=== PATIENT | female | born 1990 | race Caucasian/White ===

== ENCOUNTER → 2017-05-14 | Outpatient (CLI) | payer OTHER ==
--- NOTE | 2017-05-14 10:10 | KCIC ---
OB < 14 WKS History: Small for dates Comparison: None. Findings: Multiple transabdominal sonographic images of the pelvis are submitted. There is a single intrauterine gestational sac. Gestational sac morphology is within normal limits. There is identifiable pole with identifiable cardiac activity 168 bpm. There is identifiable yolk sac. anatomy and placenta are not well visualized at this age of the . [place] [employer]-rump length measurement of 2.27 cm corresponds 9 weeks 0 days. Adjusted ultrasound age is 9 weeks 0 days with estimated delivery date of 12/17/2017. LMP age is 10 weeks 0 days with estimated delivery date of 12/10/2017. Uterus measured 16.2 x 6.3 x 8.7 cm. No free fluid is demonstrated. Right ovary measured 4.7 x 2.3 x 3.5 cm. There is a focus of different echogenicity of the right ovary on the order of 2.2 x 1.9 x 2 cm. Left ovary measured 3.1 x 1.7 x 1 3.1 cm. There is normal low resistance vascularity of both ovaries. Impression: 1. There is a single viable intrauterine , adjusted ultrasound age 9 weeks 0 days with estimated delivery date of 12/17/2017. 2. Focus of different echogenicity of the right ovary is likely due to corpus luteal cyst. Electronically signed by: Hugh Liz MD (05/14/2017 10:07 AM) [id number]
== END | disposition home or self-care (01) ==
LOC: KCIC US 08:49
PROVIDERS: ATTEND Family Medicine
DX: Z34.91 Encounter for supervision of normal pregnancy, unspecified, first trimester (principal); Z3A.09 9 weeks gestation of pregnancy
CPT/HCPCS: 76801

== ENCOUNTER → 2017-07-30 | Outpatient (CLI) | payer OTHER ==
--- NOTE | 2017-07-30 16:04 | KCIC ---
OB ULTRASOUND, > 14 WEEKS Clinical Indication: Large for dates, anatomy scan. Comparison: OB ultrasound, May 14, 2017. Technique: Multiple grayscale images, color Doppler, and M-mode images of the uterus are obtained. Findings: There is a single intrauterine gestation in breech presentation. The placenta is posterior in location without evidence of placenta previa. The amount of amniotic fluid appears appropriate. Amniotic fluid index is 13 cm. Cervical length is 4.7 cm. Biometrical data: BPD = 4.5 cm for 19 weeks 5 days. HC = 17.8 cm for 20 weeks 2 days. AC = 14.6 cm for 20 weeks 0 days. FL = 3.3 cm for 20 weeks 2 days. HC/AC ratio = 1.21. Overall, the estimated sonographic gestational age is 20 weeks and 1 day for an estimated date of delivery of December 16, 2017. The estimated date of delivery provided by the last ultrasound is 12/17/2017. Estimated weight is 331 +/- 49 grams. A 4 chamber heart is identified with positive cardiac activity. The estimated heart rate is 143 beats per minute. Bilateral upper and lower extremities are identified. There is a three-vessel cord with cord insertion visualized. stomach and urinary bladder are identified. Both kidneys are seen. The visualized spine is unremarkable. Limited images of the brain. No obvious anatomic abnormalities are identified. IMPRESSION: 1. Single live intrauterine gestation with estimated sonographic gestational age of 20 weeks and 1 day. 2. No obvious anatomic abnormality. Electronically signed by: Armani Knox MD (07/30/2017 4:00 PM) [id number]
== END | disposition home or self-care (01) ==
LOC: KCIC US 10:39
PROVIDERS: ATTEND Family Medicine
DX: O36.62X0 Maternal care for excessive fetal growth, second trimester, not applicable or unspecified (principal); Z3A.20 20 weeks gestation of pregnancy
CPT/HCPCS: 76805

== ENCOUNTER 2017-12-06 11:33 | Observation (INO) | payer OTHER ==
[2017-12-06] MEDS ORDERED: IV RINGERS,LACTATED 1000ML 1,000 ML IV (11:42)
[2017-12-06 12:09] LABS: BILIRUBIN,URINE NEGATIVE (NEG); CLARITY,URINE CLEAR; COLOR,URINE YELLOW; GLUCOSE,URINE NEGATIVE (NEG); NITRITE,URINE NEGATIVE (NEG); PROTEIN,URINE NEGATIVE (NEG-TRACE); UROBILINOGEN,URINE 0.2 mg/dL (0.2 mg/dL)
[2017-12-06 12:32] LABS: ADD MAN DIFF? NO
[2017-12-06 12:34] LABS: RBC,URINE OCC /HPF (0-2)
[2017-12-06 12:35] LABS: BACTERIA,URINE FEW /HPF (0-FEW); BASO % 0 % (0-3); EOS # 0.1 x10^3/uL (0.0-0.7); EOS % 1 % (0-3); HEMATOCRIT 32.3 % (36.0-47.0); HEMOGLOBIN 11.1 g/dL (12.0-15.5); LYMPH # 1.7 x10^3/uL (1.0-4.8); LYMPH % 18 % (24-48); MEAN CORPUSCULAR HEMOGLOBIN 30 pg (25-35); MEAN CORPUSCULAR HGB CONC 34 g/dL (31-37); MEAN CORPUSCULAR VOLUME 88 fL (79-100); MONO # 0.6 x10^3/uL (0.0-1.1); MONO % 6 % (0-9); NEUT % 75 % (31-73); PLATELET COUNT 166 x10^3/uL (140-400); RED BLOOD COUNT 3.66 x10^6/uL (3.50-5.40); RED CELL DISTRIBUTION WIDTH 17.5 % (11.5-14.5); SQUAMOUS EPITHELIAL CELL,UR MOD /LPF; WHITE BLOOD COUNT 9.4 x10^3/uL (4.0-11.0)
[2017-12-06 13:05] LABS: URIC ACID 4.3 mg/dL (2.6-6.0)
[2017-12-06 13:06] LABS: ALBUMIN 2.7 g/dL (3.4-5.0); ALBUMIN/GLOBULIN RATIO 0.7 (1.0-1.7); ALK PHOS 123 U/L (46-116); ANION GAP 8 (6-14); AST (SGOT) 16 U/L (15-37); BLOOD UREA NITROGEN 9 mg/dL (7-20); BUN/CREATININE RATIO 13 (6-20); CARBON DIOXIDE 26 mmol/L (21-32); CHLORIDE 105 mmol/L (98-107); CREATININE 0.7 mg/dL (0.6-1.0); GFR 100.4; GLUCOSE 86 mg/dL (70-99); POTASSIUM 4.3 mmol/L (3.5-5.1); SODIUM 139 mmol/L (136-145); TOTAL BILIRUBIN 0.4 mg/dL (0.2-1.0); TOTAL PROTEIN 6.6 g/dL (6.4-8.2)
[2017-12-06 13:07] LABS: ALT (SGPT) 13 U/L (14-59)
[2017-12-07 02:12] LABS: HEMOGLOBIN A1C 5.3 % (4.8-5.6)
[2017-12-07 06:17] LABS: RPR Non Reactive (Non Reactive)
== END 2017-12-06 15:10 | disposition home or self-care (01) ==
LOC: 3 SO LND 11:33
DX: O13.3 Gestational [pregnancy-induced] hypertension without significant proteinuria, third trimester (principal); Z3A.38 38 weeks gestation of pregnancy
CPT/HCPCS: 36415; 76815; 76819; 80053; 81001; 83036; 84550; 85025; 86593; 86850; 86900; 86901; 87086; G0378; G0379

== ENCOUNTER 2017-12-13 18:40 | Inpatient (IN) | payer OTHER ==
[2017-12-13] MEDS ORDERED: TERBUTALINE 1 MG/ML VIAL. SQ (19:00)
[2017-12-13] MEDS ORDERED: LIDOCAINE 1% PF 30 ML VIAL. INJ (19:00)
[2017-12-13] MEDS ORDERED: BUTORPHANOL 2 MG/ML VIAL. IV (19:00)
[2017-12-13] MEDS ORDERED: ZOLPIDEM 5 MG TABLET. PO (19:00)
[2017-12-13] MEDS ORDERED: OXYTOCIN 30 UNIT/500 ML PREMIX 500 ML IV (19:00)
[2017-12-13] MEDS ORDERED: 0.9 % SODIUM CHLORIDE 10 ML DISP.SYRIN. IV (19:00)
[2017-12-13] MEDS ORDERED: ONDANSETRON PF 4 MG/2 ML VIAL. IV (19:00)
[2017-12-13] MEDS: DINOPROSTONE 10 MG SUPP.VAG VG (20:02)
[2017-12-13] MEDS: IV RINGERS,LACTATED 1000ML 1,000 ML IV (20:02)
[2017-12-13 20:21] LABS: ADD MAN DIFF? NO
[2017-12-13 20:26] LABS: BASO % 0 % (0-3); EOS % 0 % (0-3); HEMATOCRIT 31.3 % (36.0-47.0); HEMOGLOBIN 10.6 g/dL (12.0-15.5); LYMPH # 1.7 x10^3/uL (1.0-4.8); LYMPH % 16 % (24-48); MEAN CORPUSCULAR HEMOGLOBIN 30 pg (25-35); MEAN CORPUSCULAR HGB CONC 34 g/dL (31-37); MEAN CORPUSCULAR VOLUME 88 fL (79-100); MONO # 0.8 x10^3/uL (0.0-1.1); MONO % 8 % (0-9); NEUT % 76 % (31-73); PLATELET COUNT 187 x10^3/uL (140-400); RED BLOOD COUNT 3.57 x10^6/uL (3.50-5.40); RED CELL DISTRIBUTION WIDTH 16.5 % (11.5-14.5); WHITE BLOOD COUNT 10.6 x10^3/uL (4.0-11.0)
[2017-12-14] MEDS: fentaNYL PF VIAL 100 MCG/2 ML VIAL IV (07:46)
[2017-12-14] MEDS: IV RINGERS,LACTATED 1000ML 1,000 ML IV (07:48)
[2017-12-14] MEDS ORDERED: L&D EPIDURAL SYRINGE 50 ML EP ×2 (07:51→09:46)
[2017-12-14] MEDS ORDERED: L&D EPIDURAL 50 ML SYRINGE. EP (08:00)
[2017-12-14] MEDS: OXYTOCIN 30 UNIT/500 ML PREMIX 500 ML IV (08:42)
[2017-12-14] MEDS ORDERED: IV RINGERS,LACTATED 1000ML 1,000 ML IV (09:50)
[2017-12-14] MEDS ORDERED: BUPIVACAINE MPF 0.25% 10 ML VIAL. EPI (10:00)
[2017-12-14] MEDS ORDERED: ROPIVacaine 0.2% IN 0.9%NACL PF 40 MG/20 ML DISP.SYRIN. EPI (10:00)
[2017-12-14] MEDS ORDERED: fentaNYL PF VIAL 100 MCG/2 ML VIAL EPI (10:00)
[2017-12-14] MEDS ORDERED: NALOXONE 0.4 MG/ML VIAL. IV (10:00)
[2017-12-14] MEDS: IBUPROFEN 800 MG TABLET. PO ×2 (13:43→20:03)
[2017-12-14] MEDS: L&D EPIDURAL SYRINGE 50 ML EP ×2 (17:00→17:02)
[2017-12-14] MEDS: ACETAMINOPHEN 325 MG TABLET. PO (21:23)
[2017-12-15] MEDS: IBUPROFEN 800 MG TABLET. PO ×3 (06:09→20:50)
[2017-12-15] MEDS: MAG HYDROX/ALUMINUM HYD/SIMETH 30 ML ORAL.SUSP PO (06:13)
[2017-12-15 06:16] LABS: RPR Non Reactive (Non Reactive)
[2017-12-15] MEDS: ACETAMINOPHEN 325 MG TABLET. PO (10:03)
[2017-12-15] MEDS: BISACODYL 10 MG SUPP.RECT. PR (10:04)
[2017-12-15] MEDS ORDERED: HYDROcodone/APAP 5/325MG 1 TAB TABLET PO ×2 (15:00)
[2017-12-15 16:02] LABS: HEMATOCRIT 27.8 % (36.0-47.0); HEMOGLOBIN 9.3 g/dL (12.0-15.5); MEAN CORPUSCULAR HEMOGLOBIN 29 pg (25-35); MEAN CORPUSCULAR HGB CONC 33 g/dL (31-37); MEAN CORPUSCULAR VOLUME 88 fL (79-100); PLATELET COUNT 180 x10^3/uL (140-400); RED BLOOD COUNT 3.16 x10^6/uL (3.50-5.40); RED CELL DISTRIBUTION WIDTH 17.1 % (11.5-14.5); WHITE BLOOD COUNT 10.3 x10^3/uL (4.0-11.0)
[2017-12-16] MEDS: IBUPROFEN 800 MG TABLET. PO (10:23)
== END 2017-12-16 15:50 | disposition home or self-care (01) | DRG 775 ==
LOC: 3 SO LND 18:40 → 3 NORTH 12-14 14:05
PROC: 10E0XZZ Delivery of Products of Conception, External Approach (ICD-10-PCS; principal; 2017-12-14)
PROC: 0UQG0ZZ Repair Vagina, Open Approach (ICD-10-PCS; 2017-12-14)
PROC: 3E0P7VZ Introduction of Hormone into Female Reproductive, Via Natural or Artificial Opening (ICD-10-PCS; 2017-12-14)
PROC: 10907ZC Drainage of Amniotic Fluid, Therapeutic from Products of Conception, Via Natural or Artificial Opening (ICD-10-PCS; 2017-12-14)
PROC: 3E0R3BZ Introduction of Anesthetic Agent into Spinal Canal, Percutaneous Approach (ICD-10-PCS; 2017-12-14)
PROC: 00HU33Z Insertion of Infusion Device into Spinal Canal, Percutaneous Approach (ICD-10-PCS; 2017-12-14)
DX: O69.81X0 Labor and delivery complicated by cord around neck, without compression, not applicable or unspecified (principal); O24.419 Gestational diabetes mellitus in pregnancy, unspecified control; O13.4 Gestational [pregnancy-induced] hypertension without significant proteinuria, complicating childbirth; O71.4 Obstetric high vaginal laceration alone; Z37.0 Single live birth; Z3A.39 39 weeks gestation of pregnancy
CPT/HCPCS: 36415; 85025; 85027; 86593; 86850; 86900; 86901; G0378; J2590; J3010; J7120

== ENCOUNTER → 2019-02-17 | Outpatient (CLI) | payer MEDICAID, OTHER ==
[2017-12-16 14:10] VITALS: BP 129/77
[~2019-02-17] MED LIST: HYDR-2761 PO; IBUP800T19 PO
--- NOTE | 2019-02-17 15:57 | KCIC ---
EXAM: PELVIC ULTRASOUND. HISTORY: Pelvic mass on exam. COMPARISON: None. FINDINGS: Sonographic evaluation of the pelvis was performed transabdominally and transvaginally. The uterus is anteverted and measures 10.7 x 5.4 x 3.7 cm. The endometrial stripe measures 8 mm. No masses are identified. There is no significant free fluid. The right ovary measures 4.7 x 3.8 x 2.7 cm. There are multiple small peripheral right ovarian follicles. A dominant follicle measures 2.0 cm and contains thin septations. The left ovary measures 3.6 x 3.1 x 2.3 cm. There are also multiple small peripheral follicles in the left ovary. There is normal Doppler flow bilaterally. There are no suspicious lesions. IMPRESSION: 1. No correlate for a palpable mass is identified. 2. Multiple small peripheral ovarian follicles bilaterally suggest polycystic ovarian syndrome. Correlate clinically. Electronically signed by: Alex Wilson MD (02/17/2019 3:54 PM) [facility]
== END | disposition home or self-care (01) ==
LOC: KCIC US 12:11
PROVIDERS: ATTEND Family Medicine
DX: D25.9 Leiomyoma of uterus, unspecified (principal)
CPT/HCPCS: 76830; 76856

== ENCOUNTER → 2019-08-15 | Outpatient (CLI) | payer SELFPAY ==
[2017-12-16 14:10] VITALS: BP 129/77
--- NOTE | 2019-08-15 17:00 | KCIC ---
EXAM: Ossific sonogram. HISTORY: Size and dates assessment. TECHNIQUE: Sonographic imaging of a gravid uterus was performed. COMPARISON: None. FINDINGS: There is a single intrauterine gestational sac with pole and yolk sac. The crown-rump length is 1.76 cm, corresponding with a gestational age of 8 weeks and 2 days and due date of 03/24/2020. There is a normal heart rate of 178 bpm. the uterus is normal in size. The gestational sac is normal in configuration and location. The right ovary is obscured. The left ovary is unremarkable. There is no pelvic free fluid. IMPRESSION: 1. Single imaging fetus with normal heart rate and estimated gestational age of 8 weeks and 2 days. 2. Obscured maternal right ovary. The maternal left ovary is unremarkable. Electronically signed by: Elham Ford MD (08/15/2019 4:57 PM) [place] [id number]
== END | disposition home or self-care (01) ==
LOC: KCIC US 15:40
PROVIDERS: ATTEND Family Medicine
DX: Z34.81 Encounter for supervision of other normal pregnancy, first trimester (principal)
CPT/HCPCS: 76801

== ENCOUNTER 2020-03-03 09:37 | Inpatient (IN) | payer SELFPAY ==
[~2020-03-03] VITALS: Ht 149.9 cm; Wt 91.6 kg
[2020-03-03] MEDS ORDERED: LIDOCAINE 1% PF 30 ML VIAL. INJ PRN (10:30)
[2020-03-03] MEDS ORDERED: OXYTOCIN 30 UNIT/500 ML PREMIX 500 ML IV PRN ×3 (10:30→19:30)
[2020-03-03] MEDS ORDERED: IBUPROFEN 400 MG TABLET. PO PRN (10:30)
[2020-03-03] MEDS ORDERED: fentaNYL PF VIAL 100 MCG/2 ML VIAL IVP PRN (10:30)
[2020-03-03] MEDS ORDERED: IV RINGERS,LACTATED 1000ML 1,000 ML IV SCH ×2 (10:30→16:44)
[2020-03-03] MEDS ORDERED: TERBUTALINE 1 MG/ML VIAL. SQ PRN (10:30)
[2020-03-03] MEDS ORDERED: 0.9 % SODIUM CHLORIDE 10 ML DISP.SYRIN. IV PRN ×2 (10:30→19:30)
[2020-03-03 10:45] VITALS: BP 98/53
[2020-03-03] MEDS ORDERED: PENICILLIN G K 5,000,000 UNIT in IV DEXTROSE 5% 100ML 100 ML IV ONE (11:00)
[2020-03-03 11:02] LABS: BILIRUBIN,URINE NEGATIVE (NEG); CLARITY,URINE CLEAR; COLOR,URINE YELLOW; NITRITE,URINE NEGATIVE (NEG); PH,URINE 5.5 (<5.0-8.0); PROTEIN,URINE NEGATIVE (NEG-TRACE); UROBILINOGEN,URINE 0.2 mg/dL (0.2 mg/dL)
[2020-03-03 11:03] LABS: BASO % 0 % (0-3); EOS % 0 % (0-3); HEMATOCRIT 31.5 % (36.0-47.0); LYMPH # 1.3 x10^3/uL (1.0-4.8); LYMPH % 16 % (24-48); MEAN CORPUSCULAR HEMOGLOBIN 31 pg (25-35); MEAN CORPUSCULAR HGB CONC 35 g/dL (31-37); MEAN CORPUSCULAR VOLUME 89 fL (79-100); MONO # 0.5 x10^3/uL (0.0-1.1); MONO % 6 % (0-9); NEUT # 6.4 x10^3/uL (1.8-7.7); NEUT % 78 % (31-73); PLATELET COUNT 155 x10^3/uL (140-400); RED BLOOD COUNT 3.54 x10^6/uL (3.50-5.40); RED CELL DISTRIBUTION WIDTH 16.1 % (11.5-14.5); WHITE BLOOD COUNT 8.3 x10^3/uL (4.0-11.0)
[2020-03-03 11:22] LABS: SQUAMOUS EPITHELIAL CELL,UR FEW /LPF
[2020-03-03 11:23] LABS: BACTERIA,URINE 0 /HPF (0-FEW); WBC,URINE OCC /HPF (0-4)
[2020-03-03] MEDS ORDERED: PENICILLIN G K 2,500,000 UNIT in IV DEXTROSE 5% 50 ML IV SCH (15:00)
[2020-03-03] MEDS ORDERED: ROPIVacaine 0.2% PF 10 ML VIAL. ONE ×2 (16:34→17:00)
[2020-03-03] MEDS ORDERED: L&D EPIDURAL SYRINGE 50 ML ONE (16:35)
[2020-03-03] MEDS ORDERED: fentaNYL PF VIAL 100 MCG/2 ML VIAL EPID PRN (16:45)
[2020-03-03] MEDS ORDERED: ROPIVacaine 0.2% PF 10 ML VIAL. EPID PRN (16:45)
[2020-03-03] MEDS ORDERED: L&D EPIDURAL SYRINGE 50 ML EPID PRN (16:45)
[2020-03-03] MEDS ORDERED: NALOXONE 0.4 MG/ML VIAL. IV PRN (16:45)
[2020-03-03] MEDS ORDERED: BUPIVACAINE MPF 0.25% 30 ML VIAL. EPID PRN (16:45)
[2020-03-03] MEDS ORDERED: L&D EPIDURAL 50 ML SYRINGE. ONE (17:00)
--- NOTE | 2020-03-03 19:18 | PDOC1 ---
OB - History Hx of Present Care: Good Care Ultrasounds: Normal mid trimester US Obstetrical Complications: Gestational Diabetes Past Family/Social History * Past Medical, Surgical, Family and Obstetric Histories reviewed from chart. Blood Type: A+ Rubella: Immune RPR/VDRL: Negative GBS Status: Unknown HBsAG: Negative OB - Chief Complaint & HPI Date of Admission: Date of Admission: Mar 03, 2020 at 09:37 Chief Complaint/History : 3 Para: 2 EDC: Mar 24, 2020 Reason for admission: other (SROM) Admission Nurse Assessment Rev: Yes OB - Admission Exam Physical Exam Vitals: VS - Last 72 Hours, by Label Date Time Temp Pulse Resp B/P (MAP) Pulse Ox O2 Delivery O2 Flow Rate FiO2 03/03/20 10:45 98.8 88 18 98/53 (68) 98 Room Air 98.8 HEENT: Normal, Nasal Mucosa Normal, Oropharynx Normal, Moist Membranes, Fontanelles Normal Lungs: Clear, Equal Abdomen: Gravid Extremities: Normal Pulses, No tenderness or swelling Reflexes: Normal Cervical Dilatation: 1cm Effacement: 75% Station: -3 Membranes: Ruptured Amniotic Fluid: Clear Heart Rate: Normal Accelerations: Accelerations Present Decelerations: No decelerations Short Term Variability: Present [place] Variability: Moderate Contractions on Admission: None SOFIYA SQUIRES MD Mar 03, 2020 19:17
[2020-03-03] MEDS ORDERED: HYDROCORTISONE 1% TOPICAL OINTMENT 30GM TUBE. TP PRN (19:30)
[2020-03-03] MEDS ORDERED: MAG HYDROX/ALUMINUM HYD/SIMETH 30 ML ORAL.SUSP PO PRN (19:30)
[2020-03-03] MEDS ORDERED: ZOLPIDEM 5 MG TABLET. PO PRN (19:30)
[2020-03-03] MEDS ORDERED: BENZOCAINE 20% TOPICAL AEROSOL SPRAY 57GM CAN. TP PRN (19:30)
[2020-03-03] MEDS ORDERED: HYDROcodone/APAP 5/325MG 1 TAB TABLET PO PRN (19:30)
[2020-03-03] MEDS ORDERED: PHENYLEPH/MINERAL OIL/PETROLAT RECTAL OINTMENT TUBE. RC PRN (19:30)
[2020-03-03] MEDS ORDERED: ACETAMINOPHEN 325 MG TABLET. PO PRN (19:30)
[2020-03-03] MEDS ORDERED: SIMETHICONE 80 MG TAB.CHEW PO PRN (19:30)
[2020-03-03] MEDS ORDERED: MAGNESIUM HYDROXIDE 2,400 MG/30 ML ORAL.SUSP. PO PRN (19:30)
[2020-03-03] MEDS ORDERED: diphenhydrAMINE HCL 25 MG CAPSULE PO PRN (19:30)
--- NOTE | 2020-03-03 19:51 | OP ---
DATE OF SURGERY: 03/03/2020 DELIVERY NOTE CLINICAL COURSE: This patient is a female with EDC of 03/24/2020, admitted with spontaneous rupture of membranes and clear fluid noted. She had risk of gestational diabetes, which was controlled with metformin and adequate blood sugar control throughout her course. She proceeded without contractions initially and started on Pitocin, dilating to 4-5 cm obtaining epidural anesthesia with good pain control, achieving complete dilatation and delivering a viable female infant. Head was delivered and suctioned. Nuchal cord x 3 was reduced. Compound cord and body was reduced. Body was delivered. Infant had spontaneous cry. There was 30 seconds placental resuscitation. Cord was clamped and transected. Infant was handed off with no gross abnormalities noted. Perineum was intact. Placenta was delivered intact with 3-vessel cord noted. Uterus was firm with Pitocin and palpation. There was 200 mL estimated blood loss. Mother and baby to recovery in stable condition. SOFIYA SQUIRES MD DR: FRANSISCA/twila JOB#: [id number] / [id number]
[2020-03-03] MEDS: IBUPROFEN 400 MG TABLET. PO SCH (21:39)
[2020-03-03 22:41] VITALS: BP 123/85
[2020-03-03 23:30] VITALS: BP 119/78
[2020-03-04] MEDS: HYDROcodone/APAP 5/325MG 1 TAB TABLET PO PRN ×4 (00:08→12:27)
[2020-03-04 04:15] VITALS: BP 108/65
[2020-03-04 05:18] LABS: BASO % 0 % (0-3); EOS % 0 % (0-3); HEMATOCRIT 30.7 % (36.0-47.0); HEMOGLOBIN 10.4 g/dL (12.0-15.5); LYMPH # 1.7 x10^3/uL (1.0-4.8); LYMPH % 16 % (24-48); MEAN CORPUSCULAR HEMOGLOBIN 30 pg (25-35); MEAN CORPUSCULAR HGB CONC 34 g/dL (31-37); MEAN CORPUSCULAR VOLUME 90 fL (79-100); MONO # 0.8 x10^3/uL (0.0-1.1); MONO % 7 % (0-9); NEUT # 8.6 x10^3/uL (1.8-7.7); NEUT % 77 % (31-73); PLATELET COUNT 149 x10^3/uL (140-400); RED BLOOD COUNT 3.43 x10^6/uL (3.50-5.40); RED CELL DISTRIBUTION WIDTH 16.4 % (11.5-14.5); WHITE BLOOD COUNT 11.2 x10^3/uL (4.0-11.0)
[2020-03-04 07:30] VITALS: BP 124/85
[2020-03-04] MEDS: IBUPROFEN 400 MG TABLET. PO SCH ×2 (07:50→18:40)
[2020-03-04] MEDS ORDERED: FERROUS SULFATE 325 MG TABLET. PO SCH (08:00)
[2020-03-04] MEDS ORDERED: MULTIVITAMIN with MINERAL TABLET. PO SCH (09:00)
[2020-03-04] MEDS ORDERED: IBUP-1060 PO (09:11)
[2020-03-04] MEDS ORDERED: HYDR-2761 PO (09:12)
--- NOTE | 2020-03-04 09:16 | PDOC3 ---
OB DISCHARGE SUMMARY DATE OF ADMISSION: 03/03/2020 DATE OF DISCHARGE: 03/04/2020 REASON FOR ADMISSION: SROM PROCEDURES: Others (Gestational DM) INTRAPARTUM PROCEDURES: Spontanous Vag Deliv DISCHARGE INFORMATION: Activity (no sexual activity x 6 weeks) HOSPITAL COURSE Routine CONDITION AT DISCHARGE Stable Term delivery 37 weeks SOFIYA SQUIRES MD Mar 04, 2020 09:16
[2020-03-04] MEDS ORDERED: DOCUSATE SODIUM 100 MG CAPSULE. PO SCH (10:00)
[2020-03-04 13:17] VITALS: BP 115/78
[2020-03-04 17:48] VITALS: BP 126/87
[2020-03-04 23:05] VITALS: BP 133/93
== END 2020-03-04 23:50 | disposition home or self-care (01) | DRG 807 ==
LOC: 3 SO LND 09:37 → OBSVTOIN 10:43 → 3 NORTH 22:15
PROVIDERS: ADMIT Family Medicine; ATTEND Family Medicine
PROC: 10E0XZZ Delivery of Products of Conception, External Approach (ICD-10-PCS; principal; 2020-03-03)
PROC: 3E0R3BZ Introduction of Anesthetic Agent into Spinal Canal, Percutaneous Approach (ICD-10-PCS; 2020-03-03)
PROC: 00HU33Z Insertion of Infusion Device into Spinal Canal, Percutaneous Approach (ICD-10-PCS; 2020-03-03)
DX: O24.429 Gestational diabetes mellitus in childbirth, unspecified control (principal); Z37.0 Single live birth; O69.81X0 Labor and delivery complicated by cord around neck, without compression, not applicable or unspecified; Z3A.37 37 weeks gestation of pregnancy; Z20.828 Contact with and (suspected) exposure to other viral communicable diseases
CPT/HCPCS: 36415; 81001; 82947; 82962; 85025; 86592; 86762; 86850; 86900; 86901; 87653; 96361; 96365; 96367; G0379; J2540; J2590; J2795; J3010; J7060; J7120; 99285-25; G0378; U0003-CS

== ENCOUNTER → 2021-06-02 | Outpatient (CLI) | payer OTHER ==
[~2021-06-02] MED LIST changes: +IBUP-1060 PO
--- NOTE | 2021-06-02 16:02 | RAD ---
AP and Lateral Views of the Chest 06/02/2021 2:40 PM Indication: Reason: ASTHMA / Spl. Instructions: / History: Comparison: None Findings: There is no focal consolidation or infiltrate identified. The cardiomediastinal silhouette is within normal limits. There is no evidence of pneumothorax or pleural effusion. No acute osseous a bnormalities are identified. Impression: No evidence of acute cardiopulmonary process. Electronically signed by: Quentin Alaniz MD (06/02/2021 4:00 PM) [id number]
== END ==
LOC: RAD 14:27
PROVIDERS: ATTEND Internal Medicine Pulmonary Disease
DX: J45.909 Unspecified asthma, uncomplicated (principal)
CPT/HCPCS: 71046